=== PATIENT | female | born 1990 | race Caucasian/White ===

== ENCOUNTER 2017-10-16 05:24 | Emergency (ER) | payer OTHER ==
[~2017-10-16] VITALS: Ht 160 cm; Wt 63.2 kg
[2017-10-16] MEDS ORDERED: PHENERGAN25 MG RC (05:29)
[2017-10-16] MEDS ORDERED: PRENATAL MVI (05:29)
[2017-10-16 05:30] VITALS: TEMP 97.5
[2017-10-16 07:12] LABS: COLLECTION METHOD CLEAN CATCH
[2017-10-16 07:23] LABS: MUCOUS Present /lpf; PH 7 (5-8); SQUAMOUS EPITHELIAL 0-2 /hpf; URINE APPEARANCE Hazy; URINE BACTERIA Rare /hpf; URINE BILIRUBIN Negative (NEGATIVE); URINE BLOOD Negative (NEGATIVE); URINE COLOR Yellow; URINE GLUCOSE Negative (NEGATIVE); URINE KETONE 2+ (NEGATIVE); URINE LEUKOCYTE ESTERASE Negative (NEGATIVE); URINE NITRATE Negative (NEGATIVE); URINE PROTEIN(semi-quant) 1+ (NEGATIVE); URINE RBC 0-2 /hpf; URINE UROBILINOGEN Negative (NEGATIVE)
[2017-10-16 09:05] VITALS: BP 103/62; PULSE 96
== END 2017-10-16 09:05 | disposition home or self-care (01) ==
LOC: COL.ER 05:24
PROVIDERS: Emergency Medicine
DX: O99.612 Diseases of the digestive system complicating pregnancy, second trimester (principal); K21.9 Gastro-esophageal reflux disease without esophagitis; Z3A.15 15 weeks gestation of pregnancy
CPT/HCPCS: J1200; J2405; J2550; J7030